=== PATIENT | female | born 1945 | race Two or more races ===

== ENCOUNTER → 2017-03-27 | Emergency (ER) | payer OTHER ==
[~2017-03-27] VITALS: Ht 165.1 cm; Wt 74.8 kg
[~2017-03-27] MED LIST: AMARIL; ATACAND HCT 31 UDTA1 PO; ATACAND4 MG; ATENOLOL50 MG PO; CATAFLAM50 MG PO; DICLOFENAC SODI50 MG PO; DIOVAN40 MG; GLUCOPHAGE XR500 MG PO; KETO10TA2 PO; NABUMETONE750 MG PO; NORFLEX100MG PO; ORPH100T PO; SEPTRA DS TABLE1 TAB PO; URETRON D/S TAB1 TAB PO
== END | disposition home or self-care (01) ==
LOC: ER 11:00
DX: R55 Syncope and collapse (principal); E11.65 Type 2 diabetes mellitus with hyperglycemia; J11.1 Influenza due to unidentified influenza virus with other respiratory manifestations

== ENCOUNTER 2018-06-23 19:34 | Emergency (ER) | payer OTHER ==
[~2018-06-23] VITALS: Ht 165.1 cm; Wt 72.6 kg
[2018-06-23] MEDS ORDERED: EZETIMIBE10 MG (20:08)
[2018-06-23] MEDS ORDERED: GLIMEPIRIDE1 MG (20:08)
[2018-06-23] MEDS ORDERED: METFORMIN HYDRO25 GM (20:08)
[2018-06-23] MEDS ORDERED: SIMVASTATIN20 MG (20:08)
[2018-06-23] MEDS ORDERED: VISTARIL25 MG (20:09)
[2018-06-23] MEDS ORDERED: ESCITALOPRA5 MG/5 ML (20:09)
== END 2018-06-23 21:46 | disposition home or self-care (01) ==
LOC: ER 19:34
DX: I16.0 Hypertensive urgency (principal); I10 Essential (primary) hypertension

== ENCOUNTER 2018-06-24 17:42 | Emergency (ER) | payer OTHER ==
[~2018-06-24] VITALS: Ht 165.1 cm; Wt 72.6 kg
[~2018-06-24 17:42] MED LIST changes: +ESCITALOPRA5 MG/5 ML; +EZETIMIBE10 MG; +GLIMEPIRIDE1 MG; +METFORMIN HYDRO25 GM; +SIMVASTATIN20 MG; +VISTARIL25 MG
== END 2018-06-24 19:59 | disposition home or self-care (01) ==
LOC: ER 17:42
DX: R51 Headache (principal)